=== PATIENT | male | born 1970 | race Caucasian/White ===

== ENCOUNTER 2021-11-13 19:56 | Emergency (ER) | payer BC ==
[2021-11-13 20:53] LABS: HEMOGLOBIN 14.4 gm/dl (14.0-17.5); RED BLOOD COUNT 4.63 M/UL (4.20-5.50)
[2021-11-13 21:21] LABS: BUN/CREATININE RATIO 20 (0-10)
== END 2021-11-14 05:15 | disposition home or self-care (01) ==
LOC: ER1 19:56
PROVIDERS: Physician Assistant
DX: R10.31 Right lower quadrant pain (principal); Z90.49 Acquired absence of other specified parts of digestive tract
CPT/HCPCS: 80053; 83690; 85025; 99284; Q9967

== ENCOUNTER 2021-11-28 12:24 | Emergency (ER) | payer BC ==
[2021-11-28 13:25] LABS: HEMOGLOBIN 14.6 gm/dl (14.0-17.5); RED BLOOD COUNT 4.93 M/UL (4.20-5.50); WHITE BLOOD COUNT 7.5 K/UL (4.5-11.0)
[2021-11-28 13:51] LABS: BUN/CREATININE RATIO 24 (0-10)
[2021-11-28] MEDS ORDERED: BENZONATATE100 MG PO (18:47)
[2021-11-28] MEDS ORDERED: PROVENTIL HFA6.7 GM INH (18:53)
== END 2021-11-28 19:01 | disposition home or self-care (01) ==
LOC: ER1 12:24
PROVIDERS: Physician Assistant
DX: U07.1 COVID-19 (principal); J12.82 Pneumonia due to coronavirus disease 2019
CPT/HCPCS: 71045; 80053; 82550; 82553; 83874; 84484; 85025; 85379; 93005; 99285